=== PATIENT | male | born 1975 | race Caucasian/White ===

== ENCOUNTER 2021-08-15 09:48 | Emergency (ER) | payer SELFPAY ==
[2021-08-15 09:48] VITALS: BP 126/94; PULSE 62; RESP 16; TEMP 37.1; O2SAT 99; BMI 26.4
--- NOTE | 2021-08-15 10:56 | [facility].EDGENADL ---
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 Disposition: Home, Self-Care Condition on Discharge: Good Instructions: DI for Drug or Alcohol Withdrawal Prescriptions: Buprenorphine HCl/Naloxone HCl [Suboxone 8 mg-2 mg Sl Film] 2 each SL DAILY #6 film Transmission Status: Received by [facility] Ondansetron [Zofran 4mg ODT] 4 mg PO TIDP PRN #12 tab PRN Reason: Nausea Transmission Status: Received by [facility] Referrals: Provider,Referral, [Primary Care Provider] - - Critical Care Critical Care Time: No Attestation: On 08/15/21, the high probability of a clinically significant, sudden or life threatening deterioration of the following system(s) required my full and direct attention, intervention and personal management. The time I documented below is in addition to time spent performing reported procedures but includes the following listed in this critical care notation. Medical Decision Making - Medical Records Medical records reviewed: Yes: I reviewed the patient's medical records. - Royal Inquiry Pt receiving controlled substance: No Vital Signs: 08/15/21 09:48 08/15/21 15:05 Temperature 98.8 F 98.5 F Temperature Source Oral Oral Pulse Rate 70 Pulse Rate [Right] 62 Respiratory Rate 16 16 Blood Pressure 128/70 Blood Pressure [Right Arm] 126/94 H Blood Pressure Mean [Right Arm] 104 Blood Pressure Source Automatic Cuff Blood Pressure Source [Right Arm] Automatic Cuff Blood Pressure Position Sitting Blood Pressure Position [Right Arm] Sitting 02 Sat by Pulse Oximetry 99 Oxygen Delivery Method Room Air Room Air Orders (Tests/Meds): ED MEDICATIONS Discontinued Medications Generic Name Dose Route Start Last Admin Trade Name Freq PRN Reason Stop Dose Admin Buprenorphine/Naloxone 1 each 08/15/21 10:17 08/15/21 10:43 Buprenorphine/Naloxone 8mg/2mg Odt 08/15/21 10:18 1 each ONCE ONE Administration Buprenorphine/Naloxone 1 each 08/15/21 11:56 08/15/21 12:16 Buprenorphine/Naloxone 8mg/2mg Odt 08/15/21 11:57 1 each ONCE ONE Administration Buprenorphine/Naloxone 1 each 08/15/21 12:43 08/15/21 13:01 Buprenorphine/Naloxone 8mg/2mg Odt 08/15/21 12:44 1 each ONCE ONE Administration Buprenorphine/Naloxone 1 each 08/15/21 12:50 08/15/21 14:05 Buprenorphine/Naloxone 8mg/2mg Odt SL 08/15/21 12:51 1 each ONCE ONE Administration Clonidine HCl 0.2 mg 08/15/21 10:59 08/15/21 11:09 Clonidine 0.1mg Tablet PO 08/15/21 11:00 Not Given ONCE ONE Ketorolac Tromethamine 15 mg 08/15/21 10:59 08/15/21 11:09 Ketorolac 30mg/Ml Vial IM 08/15/21 11:00 Not Given ONCE ONE Lorazepam 2 mg 08/15/21 13:19 08/15/21 13:45 Lorazepam 1mg Tablet PO 08/15/21 13:20 2 mg ONCE ONE Administration Ondansetron HCl 4 mg 08/15/21 10:17 08/15/21 10:28 Ondansetron 4mg Odt SL 08/15/21 10:18 4 mg ONCE ONE Administration Medical Decision Narrative: Patient is a 46-year-old male presents the ED today for further evaluation of opioid withdrawal, patient is relatively well-appearing on reevaluation, no acute distress, vital signs do not show any significant abnormalities on evaluation. Patient is having clinical symptoms of opioid withdrawal, plan to administer Suboxone orally here in the emergency department starting with 8 mg orally and we will continually reassess. Patient ultimately required 32 mg of oral Suboxone, sent home with 16 mg once a day, given explicit instructions to follow-up outpatient with a Suboxone clinic. Patient appears symptomatically improved, although is still endorsing some symptoms of withdrawal, looks better on my physical examination after 32 mg of oral Suboxone. Have discussed symptoms of opioid withdrawal, indications to return to the emergency department, and to return with any new or worsening symptoms, I have given patient extensive inst
[2021-08-15 15:05] VITALS: BP 128/70; PULSE 70; RESP 16; TEMP 36.9; O2SAT 98
== END 2021-08-15 15:06 | disposition home or self-care (01) ==
PROVIDERS: Emergency Provider Student in an Organized Health Care Education/Training Program
DX: F11.23 Opioid dependence with withdrawal (principal)
CPT/HCPCS: 96372; 99283; J0574